=== PATIENT | female | born 1945 | race Caucasian/White ===

== ENCOUNTER 2017-08-25 10:09 | Day surgery (SDC) | payer OTHER, MEDICAID ==
[2017-08-25] MEDS ORDERED: PROPOFOL 40 ML (12:38)
[2017-08-25] MEDS ORDERED: LIDOCAINE 2% (SDV) 5 ML INJ (12:38)
== END 2017-08-25 16:32 | disposition home or self-care (01) ==
LOC: GIL 10:09
DX: Z12.11 Encounter for screening for malignant neoplasm of colon (principal); D12.3 Benign neoplasm of transverse colon; K64.8 Other hemorrhoids; I10 Essential (primary) hypertension; E11.9 Type 2 diabetes mellitus without complications; Z86.73 Personal history of transient ischemic attack (TIA), and cerebral infarction without residual deficits
CPT/HCPCS: 45380; 82962; 88305